=== PATIENT | female | born 1990 | race Caucasian/White ===

== ENCOUNTER 2020-05-23 18:42 | Emergency (ER) | payer OTHER ==
[~2020-05-23] VITALS: Ht 157.5 cm; Wt 59.0 kg
[2020-05-23] MEDS ORDERED: DIALYVITE 3,001 EACH PO (18:55)
== END 2020-05-23 22:11 | disposition home or self-care (01) ==
LOC: ER 18:42
DX: N93.8 Other specified abnormal uterine and vaginal bleeding (principal); Z3A.01 Less than 8 weeks gestation of pregnancy

== ENCOUNTER → 2020-05-25 07:42 | Outpatient (CLI) | payer OTHER ==
[~2020-05-25 07:42] MED LIST: DIALYVITE 3,001 EACH PO
== END | disposition home or self-care (01) ==
LOC: LAB 07:42
PROVIDERS: ATTEND Emergency Medicine
DX: Z34.00 Encounter for supervision of normal first pregnancy, unspecified trimester (principal)

== ENCOUNTER 2020-05-28 16:36 | Emergency (ER) | payer OTHER ==
[~2020-05-28] VITALS: Ht 157.5 cm; Wt 59.4 kg
== END 2020-05-29 07:37 | disposition home or self-care (01) ==
LOC: ER 16:36
DX: O03.9 Complete or unspecified spontaneous abortion without complication (principal)

== ENCOUNTER → 2020-07-20 09:32 | Outpatient (CLI) | payer OTHER | END | disposition home or self-care (01) | LOC: LAB 09:32 | PROVIDERS: ATTEND Obstetrics & Gynecology | DX: I10 Essential (primary) hypertension (principal); E03.8 Other specified hypothyroidism; E78.00 Pure hypercholesterolemia, unspecified; N91.0 Primary amenorrhea; E55.9 Vitamin D deficiency, unspecified; Z21 Asymptomatic human immunodeficiency virus [HIV] infection status; R79.89 Other specified abnormal findings of blood chemistry; Z00.00 Encounter for general adult medical examination without abnormal findings; O26.20 Pregnancy care for patient with recurrent pregnancy loss, unspecified trimester ==